=== PATIENT | female | born 1935 | race African-American/Black ===

== ENCOUNTER → 2021-05-21 | Outpatient (CLI) | payer OTHER ==
--- NOTE | 2021-05-21 16:37 | RAD ---
EXAM: 3 Views Left Shoulder DATE: 05/21/2021 10:05 AM INDICATION: Reason: LEFT SHOULDER PAIN / Spl. Instructions: / History: COMPARISON: No Prior FINDINGS: There is no evidence for acute fracture or dislocation. AC joint is congruent. AC joint DJD. High ri ding humeral head. Severe left Glenohumeral joint degenerative changes are seen with subchondral cyst s and remodeling. IMPRESSION: 1. No acute fracture or dislocation. 2. Rotator cuff arthropathy with severe left shoulder joint osteoarthritis. Electronically signed by: Nico Escobedo MD (05/21/2021 4:35 PM) [id number]
== END ==
LOC: RAD 09:57
PROVIDERS: ATTEND Orthopaedic Surgery
DX: M19.012 Primary osteoarthritis, left shoulder (principal); M25.812 Other specified joint disorders, left shoulder
CPT/HCPCS: 73030